=== PATIENT | male | born 1990 | race African-American/Black ===

== ENCOUNTER 2025-08-25 10:34 | Emergency (ER) | payer MEDICAID ==
[~2025-08-25] VITALS: Ht 177.8 cm; Wt 138.6 kg
--- NOTE | 2025-08-25 10:47 | Physician Documentation ---
History of Present Illness General Chief Complaint: Knee Pain Stated Complaint: R KNEE PAIN Time Seen by MD: 10:47 History of Present Illness Initial Comments Patient is a 34-year-old male with intermittent right knee pain patient states that he has pain when he bends his knee, he states that this has been going on intermittently for several years. The patient denies any recent trauma. The patient states he is current pain is 2/10 and worse when he bends the knee states the pain is underneath the kneecap. The patient denies any history of blood clots no fevers chills nausea or vomiting. Medication Reconciliation Allergies: Coded Allergies: No Known Allergies (Unverified , 08/25/25) Review of Systems All Other Systems at this time: Reviewed and Negative Physical Exam Physical Exam Vital Signs: Temperature: 98.0, Source: Temporal, Heart Rate: 80, Respiratory Rate: 18, BP: 156/105, Pulse Oximetry: 93, Weight: 138.640 Oxygen Flow Rate: 0 Physical Exam VITALS: Reviewed and as above. GENERAL: Alert, no apparent distress. HEENT: Normocephalic, atraumatic, PERRL, EOMI, dry mucosa, no erythema BACK: No CVA tenderness, or swelling MUSCULOSKELETAL: No deformities, no edema the patient has no effusion joint is stable he does have some pain on flexion of the knee and pain over the patellar tendon SKIN: Warm and dry, no rash NEURO: Oriented x4, No motor or sensory deficit PSYCH: Normal mood and affect, no agitation Progress Results/Orders Results/Orders Orders - HECTOR VILLALOBOS MD, Complete (08/25/25 10:43) Completed Orders - HECTOR VILLALOBOS MD Knee, Complete (08/25/25 10:43) Vital Signs 08/25/25 08/25/25 08/25/25 08/25/25 10:36 10:56 11:06 11:40 Temp 98.0 98.0 98.0 Pulse 80 99 99 Resp 18 14 14 B/P (MAP) 156/105 155/115 (128) 155/115 Pulse Ox 93 99 99 O2 Flow Rate 0 EKG/XRAY/CT/US/VASC/MRI Bone/Soft Tissue X-Ray (Spine) : Additional Comment Patient: URIEL ESPOSITO Medical Record: [id number] : 1990, Age: 34 Sex: Male Location: ER Patient Status: REG ER Service Date/Time: 08/25/251042 Ordering Physician: HECTOR VILLALOBOS MD Exam: KNEE, COMP 4 VW MIN CLINICAL INDICATION: KNEE PAIN TECHNIQUE: 4 radiographic views of the right knee were obtained. Comparison: None FINDINGS/IMPRESSION: There is no evidence of acute fracture or dislocation. The visualized joint space is well maintained. Trace right knee joint effusion The alignment is anatomical. There is no radiopaque foreign body. Electronically Signed by:EVITA ZARATE MD Date & Time: 08/25/251114 Dictated by: EVITA ZARATE MD Dictation date and time: 08/25/251114 Primary Care Provider: NO PRIMARY CARE PROVIDER cc: HECTOR VILLALOBOS MD ~ Medical Decision Making Additional information obtaine: old records, family Findings Patient complains of knee pain he has some tenderness over the patellar tendon there was no significant effusion plain film x-rays were unremarkable. The patient will be discharged with instructions to limit his activity over the next three days. The patient has has been advised to use ibuprofen for the pain. Differential Diagnosis Contusion, fracture, cellulitis, gout Departure Time of Disposition: 11:02 Disposition: 01 HOME / SELF CARE / HOMELESS Impression: Primary Impression: Knee pain Qualified Codes: M25.561 - Pain in right knee Discharge Instructions: Acute Knee Pain, Adult Additional Instructions: Use heat pads and ibuprofen as needed for pain Departure Forms: Excuse form Work or School Excused From: Work Excuse beginning now through the following date: Aug 25, 2025 May Return but still avoid physical Activity from now until: Aug 31, 2025 May Return to full physical activity as of: Aug 31, 2025 Additional Instructions: Seated work only until the 31 of August no standing walking lifting until the 31 of August Referrals: NO PRIMARY CARE PROVIDER (PCP) Signature Scribe Signature: No scribe Attestation: The note accurately reflects work and decisions made by me.Hector Villalobos MD 08/29/25 07:43 HECTOR VILLALOBOS MD Aug 25, 2025 10:47
--- NOTE | 2025-08-25 11:17 | RADIOLOGY REPORT ---
CLINICAL INDICATION: KNEE PAIN TECHNIQUE: 4 radiographic views of the right knee were obtained. Comparison: None FINDINGS/IMPRESSION: There is no evidence of acute fracture or dislocation. The visualized joint space is well maintained. Trace right knee joint effusion The alignment is anatomical. There is no radiopaque foreign body.
[2025-08-25 11:40] VITALS: BP 155/115; PULSE 99; RESP 14; TEMP 98; O2SAT 99
== END 2025-08-25 11:42 | disposition home or self-care (01) ==
LOC: ER 10:35
DX: M25.561 Pain in right knee (principal)
CPT/HCPCS: 73564; 99283